=== PATIENT | female | born 1950 ===

== ENCOUNTER 2018-01-02 13:08 | Emergency (ER) | payer OTHER ==
--- NOTE | 2018-01-02 14:41 | RADIOLOGY REPORT ---
EXAMINATION: XR FOOT, RIGHT CLINICAL INFORMATION: Concern for foreign body about the fifth digit. COMPARISON: None TECHNIQUE: AP, lateral, and oblique views of the right foot. FINDINGS: There is no significant soft tissue swelling. No fracture. Alignment is anatomic. There is mild degenerative change to the first MTP joint. There are small calcaneal spurs present. Joint spaces are maintained. There are no radiopaque foreign bodies demonstrable. IMPRESSION: No evidence for acute injury. No demonstrable radio opaque foreign bodies. Mild degenerative change to the first MTP joint. Small calcaneal spurs.
--- NOTE | 2018-01-02 16:30 | ED UPPER/LOWER EXTREMITY COMPL ---
History of Present Illness General Chief Complaint: Lower Extremity Problems Stated Complaint: R FOOT FOREIGN OBJECT ON XRAY Source: patient Exam Limitations: no limitations Vital Signs & Intake/Output Vital Signs & Intake/Output Vital Signs Date Time Temp Pulse Resp B/P B/P Pulse O2 O2 Flow FiO2 Mean Ox Delivery Rate 01/02 1636 98.6 76 18 122/85 98 Room Air 01/02 1321 97.5 77 16 113/77 96 Room Air Allergies Coded Allergies: No Known Allergies (01/02/18) Triage Note: PT TO ED WITH C/O GLASS IN BOTTOM OF RIGHT FOOT. STATES HAD XRAY 4-5 DAYS AGO, BUT THEY WERE UNABLE TO REMOVE AT THAT TIME. TOLD TO FOLLOW UP WITH SURGEON OR ED PER PT. Triage Nurses Notes Reviewed? yes Onset: Gradual Duration: week(s): Timing: recent history Severity: moderate HPI: 67-year-old female presents emergency department complaining of foreign body in right foot from injury 2 weeks ago. Patient states that she sustained small laceration from ceramic pot 2 weeks ago. Patient states she was concerned that a piece of glass got in her wound and she has a persistent foreign body. Patient was seen in urgent care 5 days ago and had foot x-rays. She was told that based on these x-rays there was a foreign body present. Patient referred to a general surgeon for could not follow-up with the doctor and presents here for removal of foreign body. Patient states she has pain to plantar surface of foot when she walks. Past History Travel History Traveled to [place] past 21 day No Medical History Any Pertinent Medical History? see below for history Surgical History Surgical History: non-contributory Psychosocial History What is your primary language Macedonian Tobacco Use: Never used Family History Hx Contributory? No Review of Systems Review of Systems Constitutional: Reports: no symptoms. EENTM: Reports: no symptoms. Respiratory: Reports: no symptoms. Cardiovascular: Reports: no symptoms. Gastrointestinal/Abdominal: Reports: no symptoms. Genitourinary: Reports: no symptoms. Musculoskeletal: Reports: see HPI. Skin: Reports: see HPI. Neurological/Psychological: Reports: no symptoms. Hematologic/Endocrine: Reports: no symptoms. Immunological: Reports: no symptoms. All Other Systems: Reviewed and Negative Physical Exam Physical Exam General Appearance: well developed/nourished, no apparent distress, alert, awake Head: atraumatic, normal appearance Eyes: Bilateral: normal appearance. Ears, Nose, Throat: hearing grossly normal Neck: normal inspection, supple, full range of motion Cardiovascular/Respiratory: no respiratory distress Back: normal inspection, normal range of motion Leg Left: normal range of motion, normal inspection Leg Right: normal range of motion, normal inspection Knee Left: normal range of motion, normal inspection Knee Right: normal range of motion, normal inspection Foot Left: normal inspection, normal range of motion Foot Right: 0.3cm scab to lateral plantar foot without active bleeding, no mass or deformity noted Neurologic/Tendon: normal sensation, normal motor functions, normal tendon functions Skin: intact, normal color, warm/dry Progress Differential Diagnosis: cellulitis, contusion, fracture, sprain, foreign body Plan of Care: No definite foreign body detected on today's x-ray. I did not feel evidence of a foreign body underneath the patient's skin however based on her positive x-ray from 5 days ago inform the patient that she will require podiatry follow-up. The patient's skin is healed from her laceration sustained 2 weeks ago. For further care regarding possible retained foreign body she will require follow-up with specialist. The patient understands and agrees with the plan of care. Diagnostic Imaging: Viewed by Me: Radiology Read. Discussed w/RAD: Radiology Read. Radiology Impression: PATIENT: SYDNEE STAPLES PRESENT AGE: 67 PATIENT ACCOUNT NO: [id number] : 50 LOCATION: [facility] ORDERING PHYSICIAN: Wicho Jimenes PA-C SERVICE DATE: 01/02/18 EXAM TYPE: RAD - XRY -FOOT TWO VIEWS RIGHT EXAMINATION: XR FOOT, RIGHT CLINICAL INFORMATION: Concern for foreign body about the fifth digit. COMPARISON: None TECHNIQUE: AP, lateral, and oblique views of the right foot. FINDINGS: There is no significant soft tissue swelling. No fracture. Alignment is anatomic. There is mild degenerative change to the first MTP joint. There are small calcaneal spurs present. Joint spaces are maintained. There are no radiopaque foreign bodies demonstrable. IMPRESSION: No evidence for acute injury. No demonstrable radio opaque foreign bodies. Mild degenerative change to the first MTP joint. Small calcaneal spurs. DICTATED BY: Luiz Myles MD DATE/TIME DICTATED:01/02/181435 FIELD INSTRUCTOR:CODY DATE/TIME TRANSCRIBED:07/16/18 / 1436 CONFIDENTIAL, DO NOT COPY WITHOUT APPROPRIATE AUTHORIZATION. <Electronically signed in Other Vendor System> SIGNED BY: Luiz Myles MD 01/02/18 1441 Departure Departure Disposition: HOME OR SELF CARE Condition: Stable Clinical Impression Primary Impression: Foot pain Referrals: Nisha BAXTER,Dustin Gallegos MD,Myl (PCP/Family) Additional Instructions: Follow up with the harness worker. Bring copies of both xray images to show this doctor. Return with worsening symptoms or conerns. Departure Forms: Customer Survey General Discharge Information
== END 2018-01-02 16:37 ==
LOC: ERH 13:08
DX: M79.671 Pain in right foot (principal)
CPT/HCPCS: 73620-RT